=== PATIENT | male | born 1960 | race Caucasian/White ===

== ENCOUNTER 2025-03-08 10:18 | Emergency (ER) | payer SELFPAY | END 2025-03-08 10:48 | disposition home or self-care (01) | LOC: JD.ED 10:18 | DX: Z76.0 Encounter for issue of repeat prescription (principal); I10 Essential (primary) hypertension; E11.9 Type 2 diabetes mellitus without complications; Z79.899 Other long term (current) drug therapy | CPT/HCPCS: 99281; 99283 ==